=== PATIENT | male | born 1945 | race Caucasian/White ===

== ENCOUNTER 2020-06-24 11:42 | Emergency (ER) | payer OTHER, MEDICAID ==
[~2020-06-24] VITALS: Ht 177.8 cm; Wt 75.7 kg
[2020-06-24 11:58] VITALS: BP 120/76; Ht 177.8 cm; Wt 75.7 kg
== END 2020-06-24 14:06 | disposition home or self-care (01) ==
LOC: ED 11:42
DX: R68.2 Dry mouth, unspecified (principal); I10 Essential (primary) hypertension; E11.9 Type 2 diabetes mellitus without complications; E78.00 Pure hypercholesterolemia, unspecified